=== PATIENT | female | born 1960 | race Caucasian/White ===

== ENCOUNTER 2017-11-22 16:48 | Emergency (ER) | payer MEDICARE ==
--- NOTE | 2017-11-22 17:08 | EDM.PDOC ---
ED HPI GENERAL MEDICAL PROBLEM - General Stated Complaint: PAIN IN LEG, CHESTPAIN Time Seen by Provider: 11/22/17 16:48 Source of Information: Reports: Patient, Family History Limitations: Reports: No Limitations - History of Present Illness INITIAL COMMENTS - FREE TEXT/NARRATIVE: 57 y.o.w.f with H/O MS dx'd 10 yeras ago, came to the ed becaue of pain at her left arm, right arm, left thigh right leg, which come and goes. Pt has some discomfort at her legt thigh, inner aspect and feels a lamp. She noticed a small bruise at her left knee, medial aspect. She has a FROM of all her extremities. No N/V/D or any acute medical issues. No trauma. Last MRI 10 years ago. BP 146/41 Pulse 68 RR 19 Pulse ox 97% on RA. Onset: Gradual Onset Date: 11/12/17 Onset Time: 08:00 Duration: Day(s):, Intermittent Location: Reports: Upper Extremity, Left, Upper Extremity, Right, Lower Extremity, Left, Generalized Quality: Reports: Ache, Burning, Dull, Stabbing Severity: Mild Improves with: Reports: None Worsens with: Reports: None Context: Reports: Other (Pt has MS) Associated Symptoms: Reports: No Other Symptoms Treatments PRESS PULLER: Reports: Acetaminophen Leg Pain Score (Numeric/FACES): 4 - Related Data Allergies Allergy/AdvReac Type Severity Reaction Status Date / Time No Known Allergies Allergy Verified 11/22/17 17:17 Home Meds: Home Meds Alendronate Sodium [Alendronate] 70 mg PO Q7D 11/22/17 [History] Calcium Citrate/Vitamin D3 [Calcium Citrate - Vit D Caplet] 1 tab PO DAILY 11/22 [History] Folic Acid 800 mg PO DAILY 11/22/17 [History] atorvaSTATin [Lipitor] 40 mg PO DAILY 11/22/17 [History] ED ROS GENERAL - Review of Systems Review Of Systems: See Below Constitutional: Reports: No Symptoms HEENT: Reports: No Symptoms Respiratory: Reports: No Symptoms Cardiovascular: Reports: No Symptoms Endocrine: Reports: No Symptoms GI/Abdominal: Reports: No Symptoms : Reports: No Symptoms Musculoskeletal: Reports: Shoulder Pain, Arm Pain, Leg Pain, Muscle Pain Skin: Reports: No Symptoms Neurological: Reports: No Symptoms Psychiatric: Reports: No Symptoms Hematologic/Lymphatic: Reports: No Symptoms Immunologic: Reports: No Symptoms ED EXAM, NEURO - Physical Exam Exam: See Below Exam Limited By: No Limitations General Appearance: Alert, WD/WN, No Apparent Distress Eye Exam: Bilateral Eye: Normal Inspection Ears: Normal External Exam, Normal Canal Nose: Normal Inspection, Normal Mucosa Throat/Mouth: Normal Inspection, Normal Lips Head Exam: Atraumatic, Normocephalic Neck: Normal Inspection, Supple, Non-Tender, Full Range of Motion Respiratory/Chest: No Respiratory Distress, Lungs Clear, Normal Breath Sounds, No Accessory Muscle Use, Chest Non-Tender Cardiovascular: Normal Peripheral Pulses, Regular Rate, Rhythm, No Edema, No Gallop, No JVD, No Murmur, No Rub GI/Abdominal: Normal Bowel Sounds, Soft, Non-Tender, No Organomegaly, No Distention, No Abnormal Bruit, No Mass (Female) Exam: Deferred Rectal (Female) Exam: Deferred Neurological: Alert, Normal Mood/Affect, Normal Dorsiflexion, CN II-XII Intact, Normal Plantar Flexion, Normal Gait, Oriented x 3 Back Exam: Normal Inspection, Full Range of Motion Extremities: Normal Inspection, Other (tender left medial thigh) Psychiatric: Normal Affect, Normal Mood Skin Exam: Warm, Dry, Intact, Normal Color, No Rash Course - Vital Signs Text/Narrative:: 57 y.o.w.f with H/O MS dx'd 10 yeras ago, came to the ed becaue of pain at her left arm, right arm, left thigh right leg, which come and goes. Pt has some discomfort at her legt thigh, inner aspect and feels a lamp. She noticed a small bruise at her left knee, medial aspect. She has a FROM of all her extremities. No N/V/D or any acute medical issues. No trauma. Last MRI 10 years ago. BP 146/41 Pulse 68 RR 19 Pulse ox 97% on RA. PE: Tender right inner thigh Imaging: US left thigh: Neg for DVT Impression: Possible progression of MS, nonspecific complains Plan: D/C with instructions Last Recorded V/S: Last Vital Signs Temp Pulse 72 11/22/17 17:51 Resp 15 11/22/17 17:51 BP 138/62 11/22/17 17:51 Pulse Ox 99 11/22/17 17:51 - Orders/Labs/Meds Orders: Active Orders 24 hr Category Date Time Status VL Duplex Lwr Ext Veins Ltd Lt [US] Stat Exams 11/22/17 17:03 Taken Departure - Departure Time of Disposition: 18:00 Disposition: Home, Self-Care 01 Condition: Good Clinical Impression: Thigh cramp - Discharge Information Referrals: Albino Helton MD [Primary Care Provider] - Forms: ED Department Discharge Additional Instructions: Please apply ICE to the affected area,please take motrin for pain, please follow up, come back if your symptoms get worse acutely - My Orders Last 24 Hours: My Active Orders 11/22/17 17:03 Duplex Lwr Ext Veins Ltd Lt [US] Stat - Assessment/Plan Last 24 Hours: My Active Orders 11/22/17 17:03 Duplex Lwr Ext Veins Ltd Lt [US] Stat
--- NOTE | 2017-11-23 11:10 | US ---
INDICATION: Swelling left thigh, question DVT. Heavier pain proximal left thigh. DUPLEX ULTRASOUND, LEFT LOWER EXTREMITY VEINS: Utilizing 2-D real time, duplex Doppler spectral analysis, and color flow imaging, examination of the left lower extremity veins revealed no evidence of deep venous thrombosis or obstruction. Compression views showed no abnormal lack of compression to suggest thrombosis. No evidence of incompetence of the valves was identified. IMPRESSION: Duplex ultrasound, left lower extremity veins, shows no evidence of deep venous thrombosis or incompetence. MTDD
== END 2017-11-22 18:15 | disposition home or self-care (01) ==
LOC: FB.ED 16:48
DX: R25.2 Cramp and spasm (principal); Z79.899 Other long term (current) drug therapy
CPT/HCPCS: 93971-LT; 99283

== ENCOUNTER 2020-09-02 07:43 | Day surgery (SDC) | payer MEDICARE ==
[2020-09-02] MEDS ORDERED: Propofol 200 MG/20 ML SDV IV ONE (07:44)
[2020-09-02] MEDS ORDERED: Lactated Ringers 1,000 ML IV SCH (08:00)
[2020-09-02] MEDS ORDERED: Sodium Chloride 0.9% 10 ML Syringe FLUSH PRN (08:00)
--- NOTE | 2020-09-02 09:45 | PCM.OPNOTE ---
- General Post-Op/Procedure Note Date of Surgery/Procedure: 09/02/20 Operative Procedure(s): screening colonoscopy Findings: melanosis coli otherwise unremarkable exam Pre Op Diagnosis: colon cancer screening Post-Op Diagnosis: melanosis coli otherwise unremarkable exam Anesthesia Technique: ISRRAEL Primary Surgeon: Edin Banks Anesthesia Provider: Patrick Whatley Pathology: none Complications: None Condition: Good Free Text/Narrative:: see dictation [id number]
--- NOTE | 2020-09-02 12:46 | OR ---
DATE OF OPERATION: 09/02/2020 SURGEON: Eidn Banks MD PROCEDURE PERFORMED: Colonoscopy. PREOPERATIVE DIAGNOSIS: Colon cancer screening. POSTOPERATIVE DIAGNOSIS: Melanosis coli. INDICATIONS FOR PROCEDURE: This is a 60-year-old white female who presents for screening colonoscopy. She is currently without complaints. DESCRIPTION OF PROCEDURE: After an excellent IV sedation was administered, digital rectal exam was performed. No marked abnormality was noted. Flexible colonoscope was inserted and advanced to the cecum. The prep was excellent. The following findings were noted. Ascending colon, mild melanosis coli. Transverse colon, melanosis coli. Descending colon, melanosis coli. Sigmoid and rectum, melanosis coli. The patient tolerated the procedure well. RECOMMENDATIONS: Repeat colonoscopy in 10 years. /[id number] /MIRANDA
== END 2020-09-02 10:45 | disposition home or self-care (01) ==
LOC: FB.SDS 07:43
PROVIDERS: ATTEND Surgery
DX: Z12.11 Encounter for screening for malignant neoplasm of colon (principal); K63.89 Other specified diseases of intestine; F32.9 Major depressive disorder, single episode, unspecified; E78.5 Hyperlipidemia, unspecified; Z79.899 Other long term (current) drug therapy; Z91.048 Other nonmedicinal substance allergy status; Z98.890 Other specified postprocedural states
CPT/HCPCS: 00731; G0121; J2704; J7120

== ENCOUNTER 2022-11-08 20:58 | Emergency (ER) | payer MEDICARE, OTHER ==
[2022-11-08 21:47] LABS: ESTIMATED GFR 105 mL/min (>60)
[2022-11-09] MEDS ORDERED: cefTRIAXone 1 GM Vial ONE (06:07)
== END 2022-11-08 22:50 | disposition home or self-care (01) ==
LOC: FB.ED 20:58
DX: L76.22 Postprocedural hemorrhage of skin and subcutaneous tissue following other procedure (principal); G35 Multiple sclerosis; Z91.048 Other nonmedicinal substance allergy status; Z79.899 Other long term (current) drug therapy
CPT/HCPCS: 36415; 80053; 81001; 83605; 85025; 86140; 99282; 99284